=== PATIENT | male | born 1960 | race Caucasian/White ===

== ENCOUNTER 2018-01-29 10:28 | Emergency (ER) | payer OTHER ==
[~2018-01-29] VITALS: Ht 188 cm; Wt 88.5 kg
[~2018-01-29 10:28] MED LIST: ASPI325EC; OXYC5 PO; TAMS.4ER PO
== END 2018-01-29 12:56 | disposition home or self-care (01) ==
LOC: ER 10:28
DX: S61.412A Laceration without foreign body of left hand, initial encounter (principal); Z88.2 Allergy status to sulfonamides; W26.8XXA Contact with other sharp object(s), not elsewhere classified, initial encounter
CPT/HCPCS: 12004; 99283

== ENCOUNTER 2025-02-03 11:23 | Inpatient (IN) | payer MEDICARE, OTHER ==
[~2025-02-03] VITALS: Ht 188 cm; Wt 93.2 kg
[2025-02-03] VITALS (19 sets, daily range): BP systolic 113–147; BP diastolic 62–102
[~2025-02-03 11:23] MED LIST changes: -ATOR80 PO; -Aspir 8181 MG PO; -FURO40 PO; -LOSA25 PO; -METO25ER PO; -NITR.4SL SL; -PANT20 PO; -TICA90TA PO; -XARELTO20 MG PO
[2025-02-03 11:39] LABS: Calcium, Ionized (POC) 1.15 mmol/L (1.10-1.46); Chloride (POC) 107 mmol/L (98-108); Glucose (ISTAT POC) 100 mg/dL (70-99); Hemoglobin (POC) 14.3 g/dL (13.5-17.5); Potassium (POC) 4.1 mmol/L (3.5-5.5); Sodium (POC) 140 mmol/L (135-148); Total CO2 (POC) 26 mmol/L (21-32)
[2025-02-03] MEDS ORDERED: Verapamil HCL 2.5 MG/ML 2ML Injection ONE (11:44)
[2025-02-03] MEDS ORDERED: NS 1,000 ML IV ONE (11:45)
[2025-02-03] MEDS ORDERED: Heparin Sodium 1000 Units/ML 10ML MDV ONE ×2 (11:45→12:51)
[2025-02-03] MEDS ORDERED: NS 250 ML IV ONE (11:45)
[2025-02-03] MEDS ORDERED: Heparin Sodium 5000 Units/ML 1ML MDV IV ONE (11:45)
[2025-02-03] MEDS ORDERED: Ticagrelor 90 MG TABLET PO ONE ×2 (11:45→17:17)
[2025-02-03] MEDS ORDERED: Nitroglycerin 2 MG/20 ML BTL ONE (11:45)
[2025-02-03] MEDS ORDERED: NiCARdipine HCL 1,000 MCG/5 ML SYR ONE (11:46)
[2025-02-03] MEDS ORDERED: FentaNYL Citrate 50 MCG/ML 2 ML Injection ONE (11:53)
[2025-02-03] MEDS ORDERED: Phenylephrine HCl 100 MCG/ML-NS 10MLSYR (1MG/10ML) ONE (11:53)
[2025-02-03] MEDS ORDERED: Atropine Sulfate 0.1 MG/ML 10ML SYR ONE (11:53)
[2025-02-03] MEDS ORDERED: Midazolam HCl 1MG / ML 2ML Vial ONE (11:53)
[2025-02-03 12:01] LABS: BASOPHILS ABSOLUTE AUTO 0.04 K/mm3 (0.00-0.23); BASOPHILS PERCENT AUTO 1 % (0-2); EOSINOPHILS PERCENT AUTO 1 % (0-6); IMMATURE GRAN ABSOLUTE AUTO 0.03 K/mm3 (0.00-0.10); IMMATURE GRAN PERCENT AUTO 0 % (0-1); LYMPHOCYTES ABSOLUTE AUTO 1.61 K/mm3 (0.84-5.20); LYMPHOCYTES PERCENT AUTO 23 % (21-46); MONOCYTES ABSOLUTE AUTO 0.55 K/mm3 (0.16-1.47); MONOCYTES PERCENT AUTO 8 % (4-13); Mean Corpuscular HGB 31.2 pg (26.0-34.0); Mean Corpuscular HGB Conc 32.6 g/dL (31.5-36.5); Mean Corpuscular Volume 96 fL (80-100); Mean Platelet Volume 9.6 fL (9.1-12.4); NEUTROPHILS ABSOLUTE AUTO 4.73 K/mm3 (1.96-9.15); NEUTROPHILS PERCENT AUTO 67 % (41-73); Platelet Count 301 K/mm3 (150-400); RDW Coefficient Variation 13.2 % (11.7-14.2); Red Blood Cell Count 4.49 M/mm3 (4.30-5.90); White Blood Cell Count 7.06 K/mm3 (4.00-11.30)
[2025-02-03 12:22] LABS: Bun/Creatinine Ratio 15.5 (12.0-20.0); Calcium, Blood 9.1 mg/dL (8.5-10.1); Creatinine, Blood 0.9 mg/dL (0.60-1.20); Magnesium, Blood 2.2 mg/dL (1.6-2.4)
[2025-02-03] MEDS ORDERED: NS 1,000 ML IV SCH (13:15)
[2025-02-03] MEDS ORDERED: Mag Hydrox/AL Hydrox/Simeth 30 ML UDC PO PRN (13:15)
[2025-02-03] MEDS ORDERED: Ondansetron HCl 2 MG / ML 2ML Vial IV PRN (13:15)
[2025-02-03] MEDS ORDERED: Acetaminophen 325 MG TABLET PO PRN (13:20)
[2025-02-03] MEDS ORDERED: Nitroglycerin 0.4 MG SUBL SL PRN (13:20)
[2025-02-03] MEDS ORDERED: Acetaminophen/Codeine 300-30 mg PO PRN (13:20)
[2025-02-03] MEDS ORDERED: Metoprolol Succinate 25 MG TABCR PO SCH (15:30)
[2025-02-03] MEDS ORDERED: Losartan Potassium 25 MG Tab PO SCH (15:30)
[2025-02-03] MEDS ORDERED: Rivaroxaban 10 MG Tab PO SCH (17:00)
[2025-02-03] MEDS ORDERED: Heparin Sodium,Porcine 5,000 UNIT/0.5 ML SDV SC ONE (17:17)
--- NOTE | 2025-02-03 18:53 | NUR ---
SHIFT SUMMARY NEURO: PT ALERT AND ORIENTED X4. ABLE TO MAKE HIS NEEDS KNOWN AND CALLS APPROPRIATELY. MOVES ALL HIS EXTREMITIES WELL. AFEBRILE CARDIAC: POST PCI WITH R RADIAL TR BAND THAT HAS BEEN DEFLATED. SOME MINIMAL BLEEDING RESOLVED WITH REINFLATION AND SLOWLY DEFLATED 1ML Q 30MIN. NOW DEFLATED AND REMOVED. AREA IS SOFT/ 0 HEMATOMA/ NO BLEEDING VISIBLE, DENIES ANY PAIN. EDUCATION PROVIDED REGARDING STEMI, THROMBUS AND MEDICATIONS INCLUDING ANTICOAG'S. LUNGS: CLEAR TO AUSCULATATION, C/O SCRATCHY THROAT. GI: ACTIVE BOWEL TONES, ABODMEN IS SOFT. : URINE- CLEAR/YELLOW. USING URINAL AT BEDSIDE. MOBILITY: PT INDEPENDENT, SBA FOR LINES/CORDS AND NON USE TO RUE. LOTS OF FAMILY INTO VISIT TODAY. POST PCI EKG AND ECHO COMPLETED. DR VEE IN TO REVIEW WITH PT AND HIS
[2025-02-03] MEDS ORDERED: Atorvastatin 40 MG Tab PO SCH (21:00)
[2025-02-03] MEDS ORDERED: Ticagrelor 90 MG TABLET PO SCH (21:00)
[2025-02-04] VITALS (12 sets, daily range): BP systolic 93–121; BP diastolic 56–87
[2025-02-04 03:36] LABS: Hematocrit 40.1 % (37.0-53.0); Hemoglobin 13.4 g/dL (13.5-17.5); Mean Corpuscular HGB 31.3 pg (26.0-34.0); Mean Corpuscular HGB Conc 33.4 g/dL (31.5-36.5); Mean Corpuscular Volume 94 fL (80-100); Mean Platelet Volume 9.2 fL (9.1-12.4); Platelet Count 254 K/mm3 (150-400); RDW Coefficient Variation 13.2 % (11.7-14.2); RDW Standard Deviation 45.5 fL (35.1-46.3); Red Blood Cell Count 4.28 M/mm3 (4.30-5.90); White Blood Cell Count 7.01 K/mm3 (4.00-11.30)
[2025-02-04 04:11] LABS: LDL/HDL RATIO 3.1
[2025-02-04 04:12] LABS: Anion Gap 9 mmol/L (3-11); Blood Urea Nitrogen 12 mg/dL (8-24); Bun/Creatinine Ratio 14.5 (12.0-20.0); CHOL/HDL RATIO 4.5; CO2, Blood 23 mmol/L (21-32); Calcium, Blood 8.4 mg/dL (8.5-10.1); Chloride, Blood 110 mmol/L (98-108); Cholesterol 223 mg/dL (50-200); Creatinine, Blood 0.83 mg/dL (0.60-1.20); Glomerular Filtration Rate 97 (60-); Glucose, Blood 104 mg/dL (70-99); HDL Cholesterol 50 mg/dL (>39); Low Density Lipoprotein Chol 155 mg/dL (0-110); Potassium, Blood 4.2 mmol/L (3.5-5.5); Sodium, Blood 138 mmol/L (136-145); Triglycerides 88 mg/dL (30-160); Very Low Density Lipoprot Chol 17 mg/dL (6-32)
--- NOTE | 2025-02-04 05:53 | NUR ---
SHIFT SUMMERY PT HAS HAD AN UNEVENTFUL SHIFT W/NO COMPLAINTS OF CHEST PAIN/PRESSURE. ALL CRITICAL VALUES REPORTED TO [facility] [employer] NURSE AND WERE EXPECTED. 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 BP WNL. OXYGEN SAT >92% ON ROOM AIR W/NO SOB THIS SHIFT. PT HAS BEEN ALERT AND ORIENTED X4. CATH SITE C/D/I W/NO BLEEDING OR HEMATOMA.
[2025-02-04] MEDS ORDERED: Pantoprazole Sodium 20 MG Tab PO SCH (07:00)
--- NOTE | 2025-02-04 07:00 | NUR ---
ASSUMED CARE: ASSUMED CARE AT START OF SHIFT (0700). PT IS DOING WELL AND RESTING IN BED. THEY ARE ALERT AND ORIENTED, ABLE TO FOLLOW COMMANDS. NO COMPLAINTS OF SOB, CHEST PAIN, OR PAIN AT THIS TIME. SINUS RYTHM, SYSTOLIC BP 110'S MAP>65 HR: 80'S. LUNG SOUNDS CLEAR AND EQUAL BILATERAL. PERIPHERAL IV'S IN RAC & LAC. LIMITED RANGE OF MOTION ON R ARM DUE TR BAND REMOVAL AND ARM BOARD IN PLACE. PT STATES THEY ARE READY TO GO HOME. LINES AND CORDS PLACED OUT OF THE WAY, CALL LIGHT PLACED WITHIN REACH.
[2025-02-04] MEDS ORDERED: Aspirin 81 MG TabEC PO SCH (09:00)
--- NOTE | 2025-02-04 10:10 | NUR ---
Pt. is sitting up in a chair and awaiting discharge. Spouse and Pts. DOLORES are present. Facilitated a life review and considered matters of keely and belief. Pt. displayed evidence of being engaged and aware. After the family stepped out, the Pt. verbalized more of what he experienced with his heart attack. Pt. 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 Prayed with Pt. Pt.verbalized gratitude for the spiritual care visit.
[2025-02-04] MEDS ORDERED: Aspir 8181 MG PO (10:25)
[2025-02-04] MEDS ORDERED: ATOR80 PO (10:27)
[2025-02-04] MEDS ORDERED: LOSA25 PO (10:28)
[2025-02-04] MEDS ORDERED: METO25ER PO (10:31)
[2025-02-04] MEDS ORDERED: NITR.4SL SL (10:33)
[2025-02-04] MEDS ORDERED: PANT20 PO (10:35)
[2025-02-04] MEDS ORDERED: XARELTO20 MG PO (10:37)
[2025-02-04] MEDS ORDERED: TICA90TA PO (10:38)
[2025-02-04] MEDS ORDERED: FURO40 PO (11:01)
--- NOTE | 2025-02-04 12:03 | NUR ---
DISCHARGED PT DISCHARGED AT 1140. EDUCATION REGARDING DISCHARGE INSTRUCTIONS AND NEW MEDICATIONS. MED LIST SENT TO [facility]. PIV'S REMOVED. PT AND FAMILY FRIEND AT BEDSIDE DURING TEACHING. ALL OF PT BELONGING SENT WITH HIM AND INCLUDING PHONE. PT AMBULATED OUT OF HOSPITAL WITHOUT ASSISTANCE TO PERSONAL CAR.
== END 2025-02-04 11:48 | disposition home or self-care (01) | DRG 322 ==
LOC: ER 11:23 → ICUE 11:50
PROVIDERS: Emergency Medicine; Student in an Organized Health Care Education/Training Program; ADMIT Internal Medicine Cardiovascular Disease
PROC: 027034Z Dilation of Coronary Artery, One Artery with Drug-eluting Intraluminal Device, Percutaneous Approach (ICD-10-PCS; principal; 2025-02-03)
PROC: B2111ZZ Fluoroscopy of Multiple Coronary Arteries using Low Osmolar Contrast (ICD-10-PCS; 2025-02-03)
DX: I21.02 ST elevation (STEMI) myocardial infarction involving left anterior descending coronary artery (principal); I23.6 Thrombosis of atrium, auricular appendage, and ventricle as current complications following acute myocardial infarction; I25.10 Atherosclerotic heart disease of native coronary artery without angina pectoris; E78.5 Hyperlipidemia, unspecified; R07.9 Chest pain, unspecified; Z79.82 Long term (current) use of aspirin; Z79.891 Long term (current) use of opiate analgesic; Z88.2 Allergy status to sulfonamides
CPT/HCPCS: 36415; 71045; 76937; 80047; 80048; 80053; 80061; 83690; 83735; 84484; 85014; 85025; 85027; 85347; 85379; 92941; 93005; 93010; 93454; 96374; 99152; 99153; 99285-25; A9270; C1725; C1769; C1874; C1887; C1894; C8929; C9606; J0461; J1644; J2250; J2371; J2470; J3010; J7030; J7050; Q9957; Q9967

== ENCOUNTER → 2025-02-03 | Outpatient (CLI) | payer MEDICARE ==
[~2025-02-03] MED LIST changes: +ATOR80 PO; +Aspir 8181 MG PO; +FURO40 PO; +LOSA25 PO; +METO25ER PO; +NITR.4SL SL; +PANT20 PO; +TICA90TA PO; +XARELTO20 MG PO
[2025-02-03 11:11] LABS: BASOPHILS ABSOLUTE AUTO 0.05 K/mm3 (0.00-0.23); BASOPHILS PERCENT AUTO 1 % (0-2); EOSINOPHILS ABSOLUTE AUTO 0.08 K/mm3 (0.00-0.68); EOSINOPHILS PERCENT AUTO 1 % (0-6); Hematocrit 42.4 % (37.0-53.0); Hemoglobin 14.1 g/dL (13.5-17.5); IMMATURE GRAN ABSOLUTE AUTO 0.03 K/mm3 (0.00-0.10); IMMATURE GRAN PERCENT AUTO 0 % (0-1); LYMPHOCYTES ABSOLUTE AUTO 1.61 K/mm3 (0.84-5.20); LYMPHOCYTES PERCENT AUTO 22 % (21-46); MONOCYTES ABSOLUTE AUTO 0.62 K/mm3 (0.16-1.47); MONOCYTES PERCENT AUTO 8 % (4-13); Mean Corpuscular HGB 31.5 pg (26.0-34.0); Mean Corpuscular HGB Conc 33.3 g/dL (31.5-36.5); Mean Corpuscular Volume 95 fL (80-100); Mean Platelet Volume 9.2 fL (9.1-12.4); NEUTROPHILS ABSOLUTE AUTO 4.96 K/mm3 (1.96-9.15); NEUTROPHILS PERCENT AUTO 68 % (41-73); Platelet Count 294 K/mm3 (150-400); RDW Coefficient Variation 13.3 % (11.7-14.2); RDW Standard Deviation 46.5 fL (35.1-46.3); Red Blood Cell Count 4.47 M/mm3 (4.30-5.90); White Blood Cell Count 7.35 K/mm3 (4.00-11.30)
[2025-02-03 11:20] LABS: Albumin, Blood 3.5 g/dL (3.4-5.0); Albumin/Globulin Ratio 0.8 (0.8-1.8); Bilirubin, Total 0.7 mg/dL (0.1-1.0); Calcium, Blood 9.3 mg/dL (8.5-10.1); Globulin, Blood 4.4 g/dL (2.2-4.0); Total Protein, Blood 7.9 g/dL (6.4-8.2)
== END ==
LOC: LAB 11:04 → LAB SHORT 11:04
PROVIDERS: Physician Assistant
DX: R07.9 Chest pain, unspecified (principal)
CPT/HCPCS: 80053; 83690; 84484; 85025; 85379

== ENCOUNTER → 2025-03-04 | Outpatient (CLI) | payer MEDICARE, OTHER ==
[~2025-03-04] MED LIST changes: +ATOR80 PO; +Aspir 8181 MG PO; +FURO40 PO; +LOSA25 PO; +METO25ER PO; +NITR.4SL SL; +PANT20 PO; +TICA90TA PO; +XARELTO20 MG PO
[2025-03-04 12:53] LABS: BASOPHILS ABSOLUTE AUTO 0.02 K/mm3 (0.00-0.23); BASOPHILS PERCENT AUTO 0 % (0-2); EOSINOPHILS ABSOLUTE AUTO 0.47 K/mm3 (0.00-0.68); EOSINOPHILS PERCENT AUTO 8 % (0-6); Hematocrit 39.4 % (37.0-53.0); Hemoglobin 13.2 g/dL (13.5-17.5); IMMATURE GRAN ABSOLUTE AUTO 0.02 K/mm3 (0.00-0.10); IMMATURE GRAN PERCENT AUTO 0 % (0-1); LYMPHOCYTES ABSOLUTE AUTO 1.19 K/mm3 (0.84-5.20); LYMPHOCYTES PERCENT AUTO 19 % (21-46); MONOCYTES ABSOLUTE AUTO 0.64 K/mm3 (0.16-1.47); MONOCYTES PERCENT AUTO 10 % (4-13); Mean Corpuscular HGB 31.8 pg (26.0-34.0); Mean Corpuscular HGB Conc 33.5 g/dL (31.5-36.5); Mean Corpuscular Volume 95 fL (80-100); Mean Platelet Volume 9.8 fL (9.1-12.4); NEUTROPHILS ABSOLUTE AUTO 3.96 K/mm3 (1.96-9.15); NEUTROPHILS PERCENT AUTO 63 % (41-73); Platelet Count 218 K/mm3 (150-400); RDW Coefficient Variation 13.8 % (11.7-14.2); RDW Standard Deviation 47.6 fL (35.1-46.3); Red Blood Cell Count 4.15 M/mm3 (4.30-5.90)
[2025-03-04 13:02] LABS: Albumin, Blood 3.4 g/dL (3.4-5.0); Albumin/Globulin Ratio 0.8 (0.8-1.8); Bilirubin, Total 0.9 mg/dL (0.1-1.0); Bun/Creatinine Ratio 18.8 (12.0-20.0); Calcium, Blood 9.2 mg/dL (8.5-10.1); Creatinine, Blood 0.85 mg/dL (0.60-1.20); Globulin, Blood 4.1 g/dL (2.2-4.0); Potassium, Blood 4.4 mmol/L (3.5-5.5); Total Protein, Blood 7.5 g/dL (6.4-8.2)
== END ==
LOC: LAB SHORT 12:44 → LAB 12:44
DX: L28.2 Other prurigo (principal)
CPT/HCPCS: 80053; 85025